=== PATIENT | female | born 1950 | race African-American/Black ===

== ENCOUNTER 2019-03-06 17:23 | Inpatient (IN) | payer MEDICARE, OTHER ==
[~2019-03-06] VITALS: Ht 172.7 cm; Wt 56.7 kg
[2019-03-06] MEDS ORDERED: PRAV20TA4 PO (17:42)
[2019-03-06] MEDS ORDERED: CLOP75TA15 PO (17:42)
[2019-03-06] MEDS ORDERED: BLOOD SUGAR DIAGNOSTIC 1 EACH STRIP VI ONE (18:30)
[2019-03-06] MEDS ORDERED: ACETAMINOPHEN 325 MG TABLET PO PRN (18:30)
[2019-03-06] MEDS ORDERED: MAG HYDROX/AL HYDROX/SIMETH 30 ML LIQUID UDC PO PRN (18:30)
[2019-03-06] MEDS ORDERED: LORAZEPAM 0.5 MG TABLET PO PRN (18:30)
[2019-03-06] MEDS ORDERED: MAGNESIUM HYDROXIDE 30 ML LIQUID UDC PO PRN (18:30)
[2019-03-06] MEDS ORDERED: TEMAZEPAM 7.5 MG CAPSULE PO PRN (18:30)
[2019-03-06 20:00] VITALS: BP 133/66
[2019-03-06] MEDS: ATORVASTATIN 20 MG TABLET PO SCH (22:08)
[2019-03-06] MEDS ORDERED: CLONAZEPAM 0.5 MG TABLET PO PRN (22:15)
[2019-03-07] MEDS ORDERED: HYDR-4354 PO (00:09)
[2019-03-07] MEDS ORDERED: PREG150C PO (00:11)
[2019-03-07] MEDS ORDERED: TIZA4TAB5 PO (00:11)
[2019-03-07 07:30] VITALS: BP 154/80
[2019-03-07] MEDS: CLOPIDOGREL 75 MG TABLET PO SCH (08:26)
[2019-03-07] MEDS: NICOTINE 14 MG/24HR PATCH TD SCH ×2 (08:26→09:00)
[2019-03-07] MEDS: HYDROCODONE/APAP 10-325 MG TABLET PO PRN ×2 (15:18→21:18)
[2019-03-07 15:59] VITALS: BP 153/71
[2019-03-07] MEDS: MIRTAZAPINE 15 MG TABLET PO SCH (20:11)
[2019-03-07] MEDS: ATORVASTATIN 20 MG TABLET PO SCH (20:11)
[2019-03-07 20:19] VITALS: BP 150/72
[2019-03-08 07:30] VITALS: BP 171/77
[2019-03-08] MEDS: NICOTINE 14 MG/24HR PATCH TD SCH (08:03)
[2019-03-08] MEDS: HYDROCODONE/APAP 10-325 MG TABLET PO PRN ×2 (08:03→15:18)
[2019-03-08] MEDS: CLOPIDOGREL 75 MG TABLET PO SCH (08:03)
[2019-03-08] MEDS: AMLODIPINE 5 MG TABLET PO SCH (15:18)
[2019-03-08 15:54] VITALS: BP 157/80
[2019-03-08 20:00] VITALS: BP 151/66
[2019-03-08] MEDS: ATORVASTATIN 20 MG TABLET PO SCH (21:01)
[2019-03-08] MEDS: MIRTAZAPINE 15 MG TABLET PO SCH (21:02)
[2019-03-08] MEDS: hydrALAZINE HCL 25 MG TABLET PO PRN (21:02)
[2019-03-09 07:30] VITALS: BP 172/85
[2019-03-09] MEDS: CLOPIDOGREL 75 MG TABLET PO SCH (08:49)
[2019-03-09] MEDS: AMLODIPINE 5 MG TABLET PO SCH (08:49)
[2019-03-09] MEDS: HYDROCODONE/APAP 10-325 MG TABLET PO PRN ×3 (08:49→21:47)
[2019-03-09] MEDS: NICOTINE 14 MG/24HR PATCH TD SCH (08:50)
[2019-03-09] MEDS: hydrALAZINE HCL 25 MG TABLET PO PRN ×2 (09:03→16:31)
[2019-03-09] MEDS ORDERED: AMLODIPINE 5 MG TABLET PO ONE (13:00)
[2019-03-09] MEDS ORDERED: hydrALAZINE HCL 10 MG TABLET PO PRN (13:00)
[2019-03-09 16:26] VITALS: BP 179/97
[2019-03-09 19:52] VITALS: BP 157/75
[2019-03-09] MEDS: MIRTAZAPINE 15 MG TABLET PO SCH (21:33)
[2019-03-09] MEDS: ATORVASTATIN 20 MG TABLET PO SCH (21:34)
[2019-03-10 07:30] VITALS: BP 166/88
[2019-03-10] MEDS: CLOPIDOGREL 75 MG TABLET PO SCH (08:23)
[2019-03-10] MEDS: NICOTINE 14 MG/24HR PATCH TD SCH (08:23)
[2019-03-10] MEDS: AMLODIPINE 10 MG TABLET PO SCH (08:23)
[2019-03-10] MEDS: HYDROCODONE/APAP 10-325 MG TABLET PO PRN ×3 (08:30→22:32)
[2019-03-10] MEDS ORDERED: AMLODIPINE 5 MG TABLET PO SCH (09:00)
[2019-03-10] MEDS ORDERED: LISINOPRIL 5 MG TABLET PO SCH (12:45)
[2019-03-10 16:09] VITALS: BP 125/68
[2019-03-10 20:12] VITALS: BP 173/84
[2019-03-10] MEDS: ATORVASTATIN 20 MG TABLET PO SCH (21:00)
[2019-03-10] MEDS: MIRTAZAPINE 15 MG TABLET PO SCH (21:13)
[2019-03-10 21:16] VITALS: BP 153/90
[2019-03-10] MEDS: hydrALAZINE HCL 25 MG TABLET PO PRN (21:19)
[2019-03-11 07:30] VITALS: BP 168/82
[2019-03-11] MEDS: HYDROCODONE/APAP 10-325 MG TABLET PO PRN ×2 (07:46→20:30)
[2019-03-11] MEDS: CLOPIDOGREL 75 MG TABLET PO SCH (08:28)
[2019-03-11] MEDS: NICOTINE 14 MG/24HR PATCH TD SCH (08:28)
[2019-03-11] MEDS: AMLODIPINE 10 MG TABLET PO SCH (08:29)
[2019-03-11 16:00] VITALS: BP 105/67
[2019-03-11] MEDS: ATORVASTATIN 20 MG TABLET PO SCH ×2 (20:29→20:36)
[2019-03-11] MEDS: MIRTAZAPINE 15 MG TABLET PO SCH (20:29)
[2019-03-11 20:39] VITALS: BP 171/81
[2019-03-11] MEDS: hydrALAZINE HCL 25 MG TABLET PO PRN (21:32)
[2019-03-12 07:30] VITALS: BP 163/81
[2019-03-12] MEDS: NICOTINE 14 MG/24HR PATCH TD SCH (08:31)
[2019-03-12] MEDS: AMLODIPINE 10 MG TABLET PO SCH (08:32)
[2019-03-12] MEDS: CLOPIDOGREL 75 MG TABLET PO SCH (08:32)
[2019-03-12] MEDS: HYDROCODONE/APAP 10-325 MG TABLET PO PRN ×2 (08:38→20:11)
[2019-03-12] MEDS ORDERED: LISINOPRIL 5 MG TABLET PO SCH (09:00)
[2019-03-12] MEDS ORDERED: LISINOPRIL 10 MG TABLET PO SCH (09:00)
[2019-03-12 15:56] VITALS: BP 131/78
[2019-03-12 20:00] VITALS: BP 134/66
[2019-03-12] MEDS: ATORVASTATIN 20 MG TABLET PO SCH (20:06)
[2019-03-12] MEDS: MIRTAZAPINE 15 MG TABLET PO SCH (20:06)
[2019-03-13 07:30] VITALS: BP 141/77
[2019-03-13] MEDS: AMLODIPINE 10 MG TABLET PO SCH (08:33)
[2019-03-13] MEDS: CLOPIDOGREL 75 MG TABLET PO SCH (08:33)
[2019-03-13] MEDS: NICOTINE 14 MG/24HR PATCH TD SCH (08:33)
[2019-03-13] MEDS: LISINOPRIL 10 MG TABLET PO SCH (08:34)
[2019-03-13] MEDS: HYDROCODONE/APAP 10-325 MG TABLET PO PRN ×2 (08:41→17:55)
[2019-03-13 16:01] VITALS: BP 137/68
[2019-03-13 20:14] VITALS: BP 136/65
[2019-03-13] MEDS: ATORVASTATIN 20 MG TABLET PO SCH (20:22)
[2019-03-13] MEDS: MIRTAZAPINE 15 MG TABLET PO SCH (20:22)
[2019-03-14 07:30] VITALS: BP 144/80
[2019-03-14] MEDS: AMLODIPINE 10 MG TABLET PO SCH (08:10)
[2019-03-14] MEDS: CLOPIDOGREL 75 MG TABLET PO SCH (08:10)
[2019-03-14] MEDS: NICOTINE 14 MG/24HR PATCH TD SCH (08:11)
[2019-03-14] MEDS: LISINOPRIL 10 MG TABLET PO SCH (08:11)
[2019-03-14] MEDS: HYDROCODONE/APAP 10-325 MG TABLET PO PRN ×2 (09:00→20:22)
[2019-03-14 15:30] VITALS: BP 134/65
[2019-03-14 20:00] VITALS: BP 164/82
[2019-03-14] MEDS: ATORVASTATIN 20 MG TABLET PO SCH ×2 (20:13→20:22)
[2019-03-14] MEDS: MIRTAZAPINE 15 MG TABLET PO SCH (20:13)
[2019-03-15 07:30] VITALS: BP 170/79
[2019-03-15] MEDS: NICOTINE 14 MG/24HR PATCH TD SCH (08:18)
[2019-03-15 08:20] VITALS: BP 110/79
[2019-03-15] MEDS: LISINOPRIL 10 MG TABLET PO SCH (08:20)
[2019-03-15] MEDS: AMLODIPINE 10 MG TABLET PO SCH (08:20)
[2019-03-15] MEDS: CLOPIDOGREL 75 MG TABLET PO SCH (08:20)
[2019-03-15] MEDS: HYDROCODONE/APAP 10-325 MG TABLET PO PRN (08:33)
== END 2019-03-15 10:45 | disposition home or self-care (01) | DRG 885 ==
LOC: ER 17:26 → GPS 17:47
PROVIDERS: ADMIT Psychiatry & Neurology Psychiatry; ATTEND Internal Medicine
DX: F33.2 Major depressive disorder, recurrent severe without psychotic features (principal); G89.4 Chronic pain syndrome; I25.10 Atherosclerotic heart disease of native coronary artery without angina pectoris; M19.90 Unspecified osteoarthritis, unspecified site; F41.9 Anxiety disorder, unspecified; Z90.710 Acquired absence of both cervix and uterus; E11.9 Type 2 diabetes mellitus without complications; Z87.891 Personal history of nicotine dependence; Z79.899 Other long term (current) drug therapy; Z85.3 Personal history of malignant neoplasm of breast; Z90.10 Acquired absence of unspecified breast and nipple; Z79.02 Long term (current) use of antithrombotics/antiplatelets; I10 Essential (primary) hypertension
CPT/HCPCS: 36415; 71045; 93005; A4663